=== PATIENT | male | born 1945 | race Asian ===

== ENCOUNTER 2019-09-25 07:41 | Emergency (ER) | payer OTHER, SELFPAY ==
--- NOTE | ~2019-09-25 | XR_ITS ---
EXAMINATION: XR ankle RT 2V DATE: 09/25/2019 08:27 INDICATION: Heel pain with erythema and swelling TECHNIQUE: Anteroposterior and lateral views of the right ankle were obtained. COMPARISON: 08/03/2018 FINDINGS: Bone alignment is normal. No fracture. Joint spaces appear relatively preserved. No right ankle joint effusion. Large Achilles calcaneal spur and moderate-sized plantar calcaneal spur. No cortical erosi ons. IMPRESSION: 1. . Large Achilles calcaneal spur and moderate-sized plantar calcaneal spur. No acute osseous abnorm ality. Reviewed, dictated and finalized at location A. IMPRESSION: 1. . Large Achilles calcaneal spur and moderate-sized plantar calcaneal spur. N o acute osseous abnormality.
[2019-09-25 07:48] VITALS: BP 131/78; PULSE 73; RESP 18; TEMP 36.6; O2SAT 100
--- NOTE | 2019-09-25 07:53 | ED.LOWEXIN ---
HPI - Extremity Injury (Lower) General Chief Complaint: Extremity Injury, Lower Stated Complaint: right lower leg/heel pain Time Seen by Provider: 09/25/19 07:51 History of Present Illness HPI Narrative: Right heal pain at the insertion of the Achilles tendon for >1 week. Worse with pressure and bearing weight. Seen by PCP and started on Naproxen 500 mg without any relief. Had similar pain a few years ago which was fixed with local injection. He does have a h/o gout. Related Data Home Medications Medication Instructions Recorded Confirmed allopurinol 300 mg tablet 300 mg PO DAILY 07/28/19 09/25/19 amlodipine 10 mg tablet 10 mg PO DAILY 07/28/19 09/25/19 aspirin 81 mg tablet,delayed 81 mg PO DAILY 07/28/19 09/25/19 release carvedilol 3.125 mg tablet 3.125 mg PO Q12H 07/28/19 09/25/19 isosorbide mononitrate 30 mg 30 mg PO DAILY 07/28/19 09/25/19 tablet,extended release 24 hr ftptzkdk-ajw-tbrgk acid 300 1 tablet PO DAILY 07/28/19 09/25/19 mcg-lycopene 600 mcg-lutein 300 mcg tablet simvastatin 40 mg tablet 40 mg PO DAILY 07/28/19 09/25/19 sitagliptin 100 mg tablet 100 mg PO DAILY 07/28/19 09/25/19 Allergies Allergy/AdvReac Type Severity Reaction Status Date / Time Penicillins AdvReac Anaphylaxis Verified 09/25/19 07:56 Review of Systems Review of Systems: All systems reviewed & are unremarkable except as noted in HPI and below Constitutional: Constitutional: Denies chills and Denies fever(s) Cardiovascular: Cardiovascular: Denies chest pain Respiratory: Respiratory: Denies dyspnea Musculoskeletal: Musculoskeletal: Denies back pain and Denies arthralgias Integumentary/Breasts: Skin/Breast: Denies skin ulcer Neurologic: Denies numbness and Denies weakness [facility] Past Medical History Medical History Diabetes Family History Family History Father Diabetes mellitus Social History Social History Smoking status: Never smoker Alcohol intake: never Gender identity (if verbalized by the patient): Male Exam Const: General: healthy appearing, no acute distress and alert Orientation/consciousness: patient oriented x3 HENMT: Head: normal to inspection Resp: Effort & Inspection: normal respiratory effort Cardio: Other: 2+ PT and DP on the right Skin: Rashes: no rashes Wounds: no wounds Other: mildly hyperemia over right Achilles insertion Neuro: General: patient oriented x3, moves all extremities, no focal motor deficits and CN's II-XI intact bilaterally Speech: normal speech Extrem: Other: tenderness over posterior healing ankle joint nontender Course Course Emergency Course: Pain resolved after injection Vital Signs Vital signs: Vital Signs Temperature 36.6 C 09/25/19 07:48 Pulse Rate 73 09/25/19 07:48 Respiratory Rate 18 09/25/19 07:48 Blood Pressure 131/78 09/25/19 07:48 Pulse Oximetry 100 09/25/19 07:48 Temperature 36.6 C 09/25/19 07:48 Pulse Rate 70 09/25/19 09:45 Respiratory Rate 16 09/25/19 09:45 Blood Pressure 138/76 09/25/19 09:45 Pulse Oximetry 98 09/25/19 09:45 Procedures Joint Aspiration/Injection Joint Asp./Inject. 1: Side of body: right Joint Aspirated: other (Achilles tendon(not joint)) Ultrasound Guidance: No Skin Prep: Chlorhexidine Local Anesthetic: bupivacaine 0.5% Amount of anesthesia used (mL): 1 Needle Size Used: Other (27G) Medication Injected, if any: Triamcinolone Acetate Amount of medication injected (mL): 1 Patient Tolerated Procedure: well MDM - Extremity Injury (Lower) MDM Narrative Medical decision making narrative: He appears to have Achilles tendonopathy. No obvious joint involvement. Will get X-ray and possibly do steroid injection. X-ray shows large spur. required injectio
[2019-09-25 09:45] VITALS: BP 138/76; PULSE 70; RESP 16; O2SAT 98
== END 2019-09-25 09:46 | disposition home or self-care (01) ==
PROVIDERS: Emergency Provider Emergency Medicine; PCP Family Medicine
DX: M76.61 Achilles tendinitis, right leg (principal); M77.31 Calcaneal spur, right foot; E11.9 Type 2 diabetes mellitus without complications; Z79.82 Long term (current) use of aspirin
CPT/HCPCS: 20551; 73600; 99283

== ENCOUNTER 2019-12-15 11:24 | Outpatient (RCR) | payer OTHER, SELFPAY | END 2019-12-15 23:59 | disposition home or self-care (01) | LOC: ANHAUDIO 11:24 | PROVIDERS: PCP Family Medicine; Visit Provider Family Medicine | DX: Z46.1 Encounter for fitting and adjustment of hearing aid (principal) | CPT/HCPCS: 99199; V5014 ==

== ENCOUNTER 2020-02-01 09:30 | Emergency (ER) | payer OTHER, SELFPAY ==
--- NOTE | ~2020-02-01 | CT_ITS ---
EXAMINATION: CT lumbar spine wo con DATE: 02/01/2020 10:43 INDICATION: Low back pain. TECHNIQUE: Computed tomography (CT) of the lumbar spine was performed without intravenous contrast. A utomated exposure control and iterative reconstruction technique were employed. The dose-length produ ct was 570.16 mGy-cm. COMPARISON: Ultrasound 08/21/2011 FINDINGS: Partially visualized are cysts in the kidneys measuring up to at least 6.2 cm on the left. There is 5 degrees dextrocurvature of lumbar spine. There is 2 mm retrolisthesis of L3 on L4. Vertebr al body heights are normal. There is moderately decreased disc height at L3-L4 and mildly decreased d isc height at L4-L5. Left ilium demonstrates cortical and trabecular thickening, consistent with Page t disease. The following disc levels are specifically discussed: L1-L2: The disc does not extend beyond the endplate margin. There is mild bilateral facet joint osteo arthritis. There is no neural foraminal stenosis. There is no central canal stenosis. L2-L3: The disc does not extend beyond the endplate margin. There is moderate bilateral facet joint o steoarthritis. There is no neural foraminal stenosis. There is no central canal stenosis. L3-L4: The disc is bulging. There is moderate bilateral facet joint osteoarthritis. There is moderate bilateral neural foraminal stenosis. There is mild central canal stenosis. L4-L5: The disc is bulging. There is mild bilateral facet joint osteoarthritis. There is mild bilater al neural foraminal stenosis. There is mild central canal stenosis. L5-S1: The disc is bulging. There is severe bilateral facet joint osteoarthritis. There is mild bilat eral neural foraminal stenosis. There is mild central canal stenosis. IMPRESSION: 1. Moderate lumbar spondylosis. Reviewed, dictated and finalized at location B. [facility] [employer]
[2020-02-01 09:37] VITALS: BP 154/74; PULSE 86; RESP 15; TEMP 36.2; O2SAT 98
[2020-02-01 10:05] LABS: Add Urine Microscopic? YES; Appearance Urine Clear (Clear); Bilirubin Urine Negative (Negative); Blood Urine Negative (Negative); Color Urine Yellow (Yellow); Glucose Urine UA Negative (Negative); Ketones Urine Negative (Negative); Leukocyte Esterase Ur Negative LEU/UL (Negative); Mucus Urine Moderate /lpf; Nitrate Urine Negative (Negative); Protein Urine 1+ mg/dL (Negative); Squamous Epithelial Cell Urine Occasional /hpf (Few); Urobilinogen Urine Negative mg/dL (<2.0); WBC Urine 0-3 /hpf
--- NOTE | 2020-02-01 10:46 | PC.NURSE ---
Pt to CT scan via stretcher.
[2020-02-01 10:47] VITALS: BP 156/78; PULSE 88; RESP 17; O2SAT 99
--- NOTE | 2020-02-01 10:49 | ED.BACK ---
HPI - Back Pain/Injury General Chief Complaint: Back Pain/Injury Stated Complaint: Back Pain Time Seen by Provider: 02/01/20 09:39 Source: patient Mode of arrival: ambulatory Limitations: no limitations History of Present Illness HPI Narrative: Patient said 5-year-old male complaining of low back pain, 8 out of 10, aching, nonradiating, worse with movement started approximately 3 days ago. Patient denies any injury. Patient states that he has occasional low back pain but the past 3 days is worse. Patient denies any bowel or urinary incontinence. Denies fever or chills. Denies urinary symptoms. Related Data Home Medications Medication Instructions Recorded Confirmed allopurinol 300 mg tablet 300 mg PO DAILY 07/28/19 10/08/19 amlodipine 10 mg tablet 10 mg PO DAILY 07/28/19 10/08/19 aspirin 81 mg tablet,delayed 81 mg PO DAILY 07/28/19 10/08/19 release carvedilol 3.125 mg tablet 3.125 mg PO Q12H 07/28/19 10/08/19 xsytbeoy-pso-afihc acid 300 1 tablet PO DAILY 07/28/19 10/08/19 mcg-lycopene 600 mcg-lutein 300 mcg tablet simvastatin 40 mg tablet 40 mg PO DAILY 07/28/19 10/08/19 sitagliptin 100 mg tablet 100 mg PO DAILY 07/28/19 10/08/19 Allergies Allergy/AdvReac Type Severity Reaction Status Date / Time Penicillins AdvReac Anaphylaxis Verified 02/01/20 09:42 Review of Systems Review of Systems: All systems reviewed & are unremarkable except as noted in HPI and below Constitutional: Constitutional: Denies body ache(s), Denies chills, Denies excessive sweating, Denies fatigue, Denies fever(s), Denies headache(s), Denies lethargy, Denies malaise, Denies weakness and Denies weight loss Eyes: Eyes: Denies blurry vision, Denies change in vision and Denies loss of vision ENT: Denies dizziness, Denies ear discharge, Denies headache(s), Denies lip swelling, Denies epistaxis, Denies nasal congestion, Denies neck pain, Denies throat swelling and Denies tongue swelling Cardiovascular: Cardiovascular: Denies chest pain, Denies chest pain at rest, Denies chest pain with activity, Denies diaphoresis, Denies rapid heart rate, Denies edema, Denies irregular heart rhythm, Denies lightheadedness, Denies palpitations, Denies dyspnea and Denies dyspnea on exertion Respiratory: Respiratory: Denies chest congestion, Denies cough, Denies hemoptysis, Denies dyspnea and Denies dyspnea on exertion Gastrointestinal: Gastrointestinal: Denies abdominal pain, Denies melena, Denies hematochezia, Denies diarrhea, Denies nausea, Denies vomiting and Denies hematemesis Musculoskeletal: Musculoskeletal: Denies abnormal gait, Denies deformity, Denies joint swelling, Denies limited range of motion, Denies neck pain and Denies numbness Neurologic: Denies Abnormal speech present, Denies abnormal gait, Denies confusion, Denies dizziness, Denies headache(s), Denies focal weakness, Denies loss of vision, Denies numbness, Denies Other visual disturbances, Denies Sensory deficit (Neuro) and Denies weakness Psychiatric: Psychiatric: Denies confusion, Denies depression, Denies auditory hallucinations, Denies homicidal ideation and Denies suicidal ideation Endocrine: Endocrine: Denies cold intolerance, Denies excessive sweating, Denies fatigue, Denies heat intolerance and Denies palpitations Hematologic/Lymphatic: Hematologic/Lymphatic: Denies easy bleeding and Denies easy bruising Allergic/Immunologic: Allergic/Immunologic: Denies lip swelling, Denies throat swelling and Denies tongue swelling PMFSH Past Medical History Medical History (Updated 02/01/20 @ 11:43 by Reinier Cat MD) Diabetes Family History Family History Father Diabetes mellitus Social History Social History Smoking status: Never smoker Alcohol intake: never Gender identity (if verbalized by the patient): Male Exam Const: General: cooperative, healthy appearin
[2020-02-01] MEDS: KETOROLAC (*BKC) 60 MG/2 ML VIAL 30 MG IM (11:14)
[2020-02-01 12:02] VITALS: BP 148/89; PULSE 79; RESP 15; O2SAT 97
== END 2020-02-01 12:04 | disposition home or self-care (01) ==
PROVIDERS: Emergency Provider Emergency Medicine; PCP Family Medicine
DX: S39.012A Strain of muscle, fascia and tendon of lower back, initial encounter (principal); Z79.82 Long term (current) use of aspirin; E11.9 Type 2 diabetes mellitus without complications; X58.XXXA Exposure to other specified factors, initial encounter
CPT/HCPCS: 72131; 81001; 96372; 99284; J1100; J1885

== ENCOUNTER 2020-05-26 09:26 | Outpatient (CLI) | payer OTHER, SELFPAY | END 2020-05-26 09:27 | disposition home or self-care (01) | LOC: ANHCOVIDVC 09:26 | PROVIDERS: PCP Family Medicine | DX: Z23 Encounter for immunization (principal) | CPT/HCPCS: 0001A; 91300 ==

== ENCOUNTER 2020-06-16 09:28 | Outpatient (CLI) | payer OTHER, SELFPAY | END 2020-06-16 09:29 | disposition home or self-care (01) | LOC: ANHCOVIDVC 09:28 | PROVIDERS: PCP Family Medicine | DX: Z23 Encounter for immunization (principal) | CPT/HCPCS: 0002A; 91300 ==

== ENCOUNTER 2020-08-17 08:20 | Emergency (ER) | payer OTHER, SELFPAY ==
--- NOTE | ~2020-08-17 | XR_ITS ---
EXAMINATION: XR foot RT min 3V DATE: 08/17/2020 09:34 INDICATION: Right heel pain TECHNIQUE: Dorsoplantar, oblique and lateral views of the right foot were obtained. COMPARISON: None. FINDINGS: Bone alignment is normal. No fracture. Polyarticular osteoarthritis, mild to moderate severity at the first metatarsophalangeal joint particularly at the articulation with the first metatarsal sesamoids and mild at several tarsal metatarsal and interphalangeal joints. Achilles calcaneal spur and modera te-sized plantar calcaneal spur. No cortical erosions. Soft tissues are unremarkable. No evident righ t ankle joint effusion. IMPRESSION: 1. Large Achilles and moderate-sized plantar calcaneal spurs. 2. Polyarticular osteoarthritis in the mid and forefoot, mild to moderate at the first metatarsophala ngeal joint. Reviewed, dictated and finalized at location A. IMPRESSION: 1. Large Achilles and moderate-sized plantar calcaneal spurs. 2. Polyarticular osteoarthritis in the mid and forefoot, mild to moderate at th e first metatarsophalangeal joint.
--- NOTE | 2020-08-17 08:27 | ED.LOWEXIN ---
HPI - Extremity Injury (Lower) General Chief Complaint: Extremity Injury, Lower Stated Complaint: right heel pain Time Seen by Provider: 08/17/20 08:27 Source: patient Mode of arrival: ambulatory Limitations: no limitations History of Present Illness HPI Narrative: Patient is a 75-year-old male with history of gout, hypertension who presents for evaluation of right heel pain. Patient with a history of calcific tendinitis of the Achilles tendon, has intermittently had flareups with previous visits to the emergency department for local injections that have completely resolved his pain. Patient denies recent fall, injury or trauma. No redness or swelling. Patient reports pain is exacerbated with movement and bearing weight. No knee pain or hip pain. Denies fever or chills. No other infectious type symptoms. Pain is currently dull, aching in nature, improved with rest. Related Data Home Medications Medication Instructions Recorded Confirmed allopurinol 300 mg tablet 300 mg PO DAILY 07/28/19 04/07/20 amlodipine 10 mg tablet 10 mg PO DAILY 07/28/19 04/07/20 aspirin 81 mg tablet,delayed 81 mg PO DAILY 07/28/19 04/07/20 release carvedilol 3.125 mg tablet 3.125 mg PO Q12H 07/28/19 04/07/20 bslxtram-taw-knqau acid 300 1 tablet PO DAILY 07/28/19 04/07/20 mcg-lycopene 600 mcg-lutein 300 mcg tablet simvastatin 40 mg tablet 40 mg PO DAILY 07/28/19 04/07/20 sitagliptin 100 mg tablet 100 mg PO DAILY 07/28/19 04/07/20 Allergies Allergy/AdvReac Type Severity Reaction Status Date / Time Penicillins AdvReac Anaphylaxis Verified 04/07/20 13:29 Review of Systems Review of Systems: Narrative: CONSTITUTIONAL: Denies fever CARDIOVASCULAR: Denies chest pain RESPIRATORY: Denies cough or dyspnea. GASTROINTESTINAL: Denies abdominal pain SKIN: Denies rash MUSCULOSKELETAL: Denies back pain, reports right heel pain NEUROLOGIC: Denies headache [facility] Past Medical History Medical History (Updated 08/17/20 @ 09:34 by Isabelle Sanders MD) CKD (chronic kidney disease) stage 3, GFR 30-59 ml/min Coronary artery disease Diabetes Dyslipidemia Hypertension Family History Family History Father Diabetes mellitus Social History Social History Smoking status: Never smoker Alcohol intake: never Gender identity (if verbalized by the patient): Male Exam Narrative: Exam Narrative: GENERAL: Awake, alert, conversant HEAD: Normocephalic, atraumatic. EYES: PERRLA and EOMI. ENT: Nares clear, no rhinorrhea or epistaxis. Mucous membranes moist. NECK: Supple. CHEST: No respiratory distress, breathing even and non labored HEART: Regular rate, sinus rhythm ABDOMEN:Non distended, non tender EXTREMITIES: Normal range of motion. No edema. Pain with flexion and extension of the right heel, pain with palpation of the right Achilles tendon at the insertion site to the calcaneus. No deformity, ecchymoses, and erythema or edema. DP pulses 2+. Posterior tibialis pulse 2+. Intact distal sensation. SKIN: Warm, dry, no rash. NEURO:No focal deficits. Alert and oriented x3 Course Vital Signs Vital signs: Vital Signs Temperature 36.6 C 08/17/20 08:45 Pulse Rate 73 08/17/20 08:45 Respiratory Rate 17 08/17/20 08:45 Blood Pressure 142/59 H 08/17/20 08:45 Pulse Oximetry 96 08/17/20 08:45 Temperature 36.6 C 08/17/20 08:45 Pulse Rate 74 08/17/20 10:17 Respiratory Rate 18 08/17/20 10:17 Blood Pressure 140/70 08/17/20 10:17 Pulse Oximetry 98 08/17/20 10:17 Procedures Other Procedure Procedure 1: Other Procedure: Steroid injection Patient was prepped and draped in sterile fashion. The heel area on the right foot/lower extremity was cleansed with chlorhexidine. Local anesthetic and Kenalog was injected to the area surrounding the Achilles tendon. Patient tolerated this well without any ac
[2020-08-17 08:45] VITALS: BP 142/59; PULSE 73; RESP 17; TEMP 36.6; O2SAT 96
--- NOTE | 2020-08-17 09:29 | PC.NURSE ---
Pt taken to Xray
[2020-08-17] MEDS: KETOROLAC 30 MG/ML VIAL (*BKC) IM (10:02)
[2020-08-17 10:17] VITALS: BP 140/70; PULSE 74; RESP 18; O2SAT 98
== END 2020-08-17 10:41 | disposition home or self-care (01) ==
PROVIDERS: Emergency Provider Emergency Medicine; PCP Family Medicine
DX: M76.61 Achilles tendinitis, right leg (principal); I12.9 Hypertensive chronic kidney disease with stage 1 through stage 4 chronic kidney disease, or unspecified chronic kidney disease; E11.22 Type 2 diabetes mellitus with diabetic chronic kidney disease; N18.30 Chronic kidney disease, stage 3 unspecified; I25.10 Atherosclerotic heart disease of native coronary artery without angina pectoris; E78.5 Hyperlipidemia, unspecified
CPT/HCPCS: 73630; 96372; 99283; J1885

== ENCOUNTER 2020-12-21 07:45 | Emergency (ER) | payer OTHER, SELFPAY ==
[2020-12-21] VITALS (14 sets, daily range): BP systolic 132–139; BP diastolic 67–74; PULSE 70–80; RESP 16; TEMP 36.7–36.8; O2SAT 95–100
--- NOTE | ~2020-12-21 | XR_ITS ---
EXAMINATION: XR foot LT min 3V DATE: 12/21/2020 08:20 INDICATION: Lateral left foot pain TECHNIQUE: Dorsoplantar, two oblique and lateral views of the left foot were obtained. COMPARISON: None. FINDINGS: Alignment is normal. Oscillation findings suggesting talocalcaneal coalition including nonvisualizati on of the subtalar joint line with posterior C sign and with talar beak. No fracture. Polyarticular o steoarthritis, mild to moderate severity at the first metatarsophalangeal joint and minimal to mild a t a few of the tarsal metatarsal and interphalangeal joints. Achilles and plantar calcaneal spurs. So ft tissues are unremarkable. 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 2. Polyarticular osteoarthritis in the mid and forefoot, mild to moderate at the first metatarsophala ngeal joint. Reviewed, dictated and finalized at location A. 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 2. Polyarticular osteoarthritis in the mid and forefoot, mild to moderate at th e first metatarsophalangeal joint.
--- NOTE | 2020-12-21 08:03 | ED.LOWEXIN ---
HPI - Extremity Injury (Lower) General Chief Complaint: Extremity Injury, Lower Stated Complaint: foot pain Time Seen by Provider: 12/21/20 07:46 Source: RN notes reviewed History of Present Illness HPI Narrative: Patient presents emergency department from home for left foot pain. Patient states he has had pain at the base of the left fifth toe that began 2 days ago. States mild swelling in the area and tenderness to touch. Patient denies any direct trauma or injury states he does have a history of gout but is not had gout in this region before he denies any pain in the ankle or the remainder of the foot patient states he did not take any pain medication this morning Related Data Home Medications Medication Instructions Recorded Confirmed allopurinol 300 mg tablet 300 mg PO DAILY 07/28/19 10/05/20 aspirin 81 mg tablet,delayed 81 mg PO DAILY 07/28/19 10/05/20 release jvhasszh-ggp-siwnm acid 300 1 tablet PO DAILY 07/28/19 10/05/20 mcg-lycopene 600 mcg-lutein 300 mcg tablet sitagliptin 100 mg tablet 100 mg PO DAILY 07/28/19 10/05/20 Allergies Allergy/AdvReac Type Severity Reaction Status Date / Time codeine AdvReac Intermediate Dizziness Verified 12/21/20 08:01 Penicillins AdvReac Anaphylaxis Verified 12/21/20 08:01 Review of Systems Review of Systems: Gen.: Denies fevers or chills Musculoskeletal: See HPI Neuro: Denies numbness, tingling, weakness Skin: Denies rash Endo: Reports diabetes mellitus PMFSH Past Medical History Medical History CKD (chronic kidney disease) stage 3, GFR 30-59 ml/min Coronary artery disease Diabetes Dyslipidemia Hypertension Family History Family History Father Diabetes mellitus Social History Social History Smoking status: Never smoker Alcohol intake: never Gender identity (if verbalized by the patient): Male Exam Narrative: APPEARANCE: No acute distress, nontoxic, resting in bed Eyes: EOMI HEENT: Normocephalic, atraumatic, RESPIRATORY: No respiratory distress MUSCULOSKELETAl: Mild swelling and erythema at the base of the fifth toe in the region of the MTP serious tender to palpation there is no erythema the remainder the foot and the remainder the foot is nontender to palpation no tenderness of the ankle dorsalis pedis pulse 2+ neurovascular intact no open wounds no fluctuance NEURO: Awake and alert. Following commands, speech normal, no focal deficits SKIN:: Warm, dry. Normal Color no rash or lesions Course Course Emergency Course: Reviewed records patient is already and on allopurinol and Naprosyn Discussed with patient results of workup and diagnosis. Discussed need for follow-up with primary care, proper use of medication, and reasons to return to the emergency department. Patient understands and agrees to current treatment plan Vital Signs Vital signs: Vital Signs Temperature 98.0 F 12/21/20 07:50 Pulse Rate 80 12/21/20 07:50 Respiratory Rate 16 12/21/20 07:50 Pulse Oximetry 99 12/21/20 07:50 Temperature 98.0 F 12/21/20 07:50 Pulse Rate 80 12/21/20 07:50 Respiratory Rate 16 12/21/20 07:50 Blood Pressure 134/67 12/21/20 09:02 Pulse Oximetry 99 12/21/20 09:02 MDM - Extremity Injury (Lower) Lab Data Result diagrams: 12/21/20 08:42 12/21/20 09:40 Labs: Lab Results 12/21/20 12/21/20 Range/Units 08:42 09:40 WBC 8.8 (4.5-10.0) K/mm3 RBC 4.83 (4.6-6.20) M/mm3 Hgb 15.0 (14.0-18.0) g/dL Hct 45.6 (42.0-52.0) % MCV 94.4 (80-100) fl MCH 31.1 (26-34) pg MCHC 32.9 (32-36) g/dl RDW 12.0 (11.5-14.5) % Plt Count 217 (150-375) k/mm3 MPV 10.3 (7.4-10.4) fl Immature Gran % (Auto) 0.2 (0-0.5) % Neut % (Auto) 70.6 (45.5-73.1) % Lymph % (Auto) 19.6 (18.3-44.2) % Ogle % (Auto) 7.
[2020-12-21] MEDS: ACETAMINOPHEN 500 MG TABLET 1000 MG PO (08:07)
[2020-12-21 08:52] LABS: Basophils Percent Auto 0.3 % (0.2-1.2); Eosinophils Absolute Auto 0.2 K/mm3 (0-0.3); Eosinophils Percent Auto 2.2 % (0-4.4); Hematocrit 45.6 % (42.0-52.0); Immature Granulocyte Absolute 0.02 K/mm3 (0.00-0.031); Immature Granulocyte Percent A 0.2 % (0-0.5); Lymphocytes Absolute Auto 1.72 K/mm3 (0.9-3.2); Lymphocytes Percent Auto 19.6 % (18.3-44.2); Mean Corpuscular HGB Conc 32.9 g/dl (32-36); Mean Corpuscular Hemoglobin 31.1 pg (26-34); Mean Corpuscular Volume 94.4 fl (80-100); Mean Platelet Volume 10.3 fl (7.4-10.4); Monocytes Absolute Auto 0.6 K/mm3 (0.1-0.6); Monocytes Percent Auto 7.1 % (2.6-8.5); Neutrophils Absolute Auto 6.2 K/mm3 (1.3-6.7); Neutrophils Percent Auto 70.6 % (45.5-73.1); Platelet Count Result 217 k/mm3 (150-375); Red Blood Count 4.83 M/mm3 (4.6-6.20); White Blood Count 8.8 K/mm3 (4.5-10.0)
[2020-12-21 10:25] LABS: Anion Gap 9 mmol/L (8-16); Blood Urea Nitrogen 21 mg/dL (9-20); Calcium 9.8 mg/dL (8.4-10.2); Carbon Dioxide 30 mmol/L (22-30); Chloride 102 mmol/L (98-107); Estimated CRCL calculation 36 ml/min; Estimated Glomerular Filt Rate 39; Glucose 183 mg/dL (65-110); Potassium 4.6 mmol/L (3.4-5.0); Sodium 141 mmol/L (137-145); Uric Acid 6.4 mg/dL (3.5-8.5)
== END 2020-12-21 11:07 | disposition home or self-care (01) ==
PROVIDERS: Emergency Provider Emergency Medicine; PCP Family Medicine
DX: M10.9 Gout, unspecified (principal); E11.22 Type 2 diabetes mellitus with diabetic chronic kidney disease; I12.9 Hypertensive chronic kidney disease with stage 1 through stage 4 chronic kidney disease, or unspecified chronic kidney disease; N18.30 Chronic kidney disease, stage 3 unspecified; M19.072 Primary osteoarthritis, left ankle and foot; Z79.82 Long term (current) use of aspirin; Z79.84 Long term (current) use of oral hypoglycemic drugs
CPT/HCPCS: 36415; 73630; 80048; 84550; 85025; 99283; A9270

== ENCOUNTER 2021-07-16 08:08 | Emergency (ER) | payer OTHER, SELFPAY ==
--- NOTE | ~2021-07-16 | XR_ITS ---
EXAMINATION: XR foot RT min 3V DATE: 07/16/2021 08:46 INDICATION: Right heel pain TECHNIQUE: Dorsoplantar, two oblique and lateral views of the right foot were obtained. COMPARISON: 08/17/2020 FINDINGS: Alignment is normal. No fracture. Polyarticular osteoarthritis. Mild to moderate at the first metatar sophalangeal joint and mild at multiple tarsal metatarsal and interphalangeal joints.. Large Achilles and moderate sized plantar calcaneal spurs. Soft tissues are unremarkable. IMPRESSION: 1. Prominent Achilles and plantar calcaneal enthesophytes. No acute osseous abnormality. Reviewed, dictated and finalized at location A. IMPRESSION: 1. Prominent Achilles and plantar calcaneal enthesophytes. No acute osseous abn ormality.
[2021-07-16 08:12] VITALS: BP 137/70; PULSE 83; RESP 16; TEMP 36.5; O2SAT 100
--- NOTE | 2021-07-16 08:18 | PC.NURSE ---
pt denies any known trauma or injury to area of complaint. pms intact.
--- NOTE | 2021-07-16 09:19 | ED.LOWEXIN ---
HPI - Extremity Injury (Lower) General Chief Complaint: Extremity Injury, Lower Stated Complaint: R heel pain Time Seen by Provider: 07/16/21 08:27 Source: patient Mode of arrival: ambulatory Limitations: no limitations History of Present Illness HPI Narrative: 76-year-old male presenting to the emergency department for evaluation of right heel pain that has been ongoing for approximately the last week. Patient denies any incident of injury. Patient denies any increased activity. Patient states that he has pain that radiates from the heel up to his posterior calf that is worsened with movement. Patient is a diabetic. Patient has a history of a traumatic brain injury. Patient states he cannot tolerate NSAIDs. Related Data Home Medications Medication Instructions Recorded Confirmed allopurinol 300 mg tablet 300 mg PO DAILY 07/28/19 04/06/21 aspirin 81 mg tablet,delayed 81 mg PO DAILY 07/28/19 04/06/21 release kgxiopye-iyl-nljaw acid 300 1 tablet PO DAILY 07/28/19 04/06/21 mcg-lycopene 600 mcg-lutein 300 mcg tablet sitagliptin 100 mg tablet 100 mg PO DAILY 07/28/19 04/06/21 Allergies Allergy/AdvReac Type Severity Reaction Status Date / Time codeine AdvReac Intermediate Dizziness Verified 07/16/21 08:14 Penicillins AdvReac Anaphylaxis Verified 07/16/21 08:14 Review of Systems Review of Systems: CONSTITUTIONAL: Denies fever, chills, or sweats. EYES: Denies visual changes, redness, or discharge. ENT: Denies rhinorrhea, congestion, sore throat, or otalgia. CARDIOVASCULAR: Denies chest pain, palpitations, or edema. RESPIRATORY: Denies cough or dyspnea. GASTROINTESTINAL: Denies abdominal pain, nausea, vomiting, or diarrhea. GENITOURINARY: Denies dysuria or hematuria. SKIN: Denies rash or itching. MUSCULOSKELETAL: See HPI NEUROLOGIC: Denies headache, numbness, or weakness. [facility] Past Medical History Medical History CKD (chronic kidney disease) stage 3, GFR 30-59 ml/min Coronary artery disease Diabetes Dyslipidemia Hypertension Family History Family History Father Diabetes mellitus Social History Social History Smoking status: Never smoker Alcohol intake: never Gender identity (if verbalized by the patient): Male Exam Narrative: APPEARANCE: Well appearing, no pain, no distress, well-nourished. HEAD: normocephalic, atraumatic. NECK: Supple. No adenopathy, no masses. RESPIRATORY: Airway patent, respirations nonlabored. Clear to auscultation bilaterally, no rales, rhonchi, wheezing. CARDIOVASCULAR: Regular rate and rhythm without murmurs rubs or gallops. ABDOMINAL: Soft, nontender, nondistended, normal bowel sounds MUSCULOSKELETAL: Moves all extremities. No calf tenderness to palpation. Patient does have point tenderness at the insertion point of the Achilles tendon. No lower extremity edema. NEURO: Alert. Cranial nerves II through XII intact. Grossly intact SKIN: Warm, dry. Normal Color. No lower extremity cellulitis. Course Course Emergency Course: Low concern for lower extremity DVT. Patient has no lower extremity edema or erythema. No calf tenderness. Patient does have tenderness of the Achilles tendon particularly at the insertion point. Patient states he is unable to tolerate NSAIDs. Patient is diabetic and and systemic steroids would not be worth the risk of the hypoglycemia. Patient will be provided crutches for limited weightbearing in order to rest the foot. Patient was also encouraged to have close follow-up with his primary care physician. Patient was comfortable with the plan for discharge and close follow-up. Patient was willing to try the [place] as he has not had this medication previously. Patient was warned of the side effects of possible gait instability dizziness and nausea. Vital Signs Vital signs: Vital Sign
== END 2021-07-16 10:00 | disposition home or self-care (01) ==
PROVIDERS: Emergency Provider Emergency Medicine; PCP Family Medicine
DX: M77.51 Other enthesopathy of right foot and ankle (principal); E11.22 Type 2 diabetes mellitus with diabetic chronic kidney disease; I12.9 Hypertensive chronic kidney disease with stage 1 through stage 4 chronic kidney disease, or unspecified chronic kidney disease; N18.30 Chronic kidney disease, stage 3 unspecified; E78.5 Hyperlipidemia, unspecified; Z79.82 Long term (current) use of aspirin; Z79.84 Long term (current) use of oral hypoglycemic drugs
CPT/HCPCS: 73630; 99283

== ENCOUNTER 2022-02-28 11:52 | Outpatient (CLI) | payer OTHER, SELFPAY ==
--- NOTE | ~2022-02-28 | XR_ITS ---
XR pelvis 1-2V DATE: 02/28/2022 12:22 INDICATION: Pain, no known injury. TECHNIQUE: AP pelvis COMPARISON: 02/01/2020 CT lumbar spine FINDINGS: There is degenerative change including prominent spurring on the left at the sacroiliac aldo nts. There is cortical thickening and increased density of the left ilium consistent with Paget's disease. No pelvic fracture or bone destruction is evident. Normal alignment at the pubic symphysis and sacroi liac joints. No fracture or dislocation, avascular necrosis or bone destruction is noted at either hi p. IMPRESSION: Paget's disease of left ilium Degenerative change at the sacroiliac joints including prominent spurring on the left Reviewed, dictated and finalized at location B. GAGE LOAN ORIGINATOR IMPRESSION: Paget's disease of left ilium Degenerative change at the sacroiliac joints including prominent spurring on th e left
--- NOTE | ~2022-02-28 | XR_ITS ---
XR sacrum coccyx min 2V DATE: 02/28/2022 12:22 INDICATION: Low back pain. No known injury. TECHNIQUE: AP, angled AP and lateral views of the sacrum and coccyx COMPARISON: None FINDINGS: There is degenerative change at the sacrum joints with particularly prominent spurring supe riorly on the left. No erosive change or ankylosis. No sacral or coccygeal fracture or bone destructi on is detected. Normal alignment at the pubic symphysis. IMPRESSION: Degenerative changes at the sacroiliac joints, left greater than right Reviewed, dictated and finalized at location B. NESS OFFICE COORDINATOR IMPRESSION: Degenerative changes at the sacroiliac joints, left greater than ri [facility]
--- NOTE | ~2022-02-28 | XR_ITS ---
XR lumbar spine 2-3V DATE: 02/28/2022 12:22 INDICATION: Low back pain, midline, for 2 days. No known injury. TECHNIQUE: AP, lateral, coned lateral lumbosacral views COMPARISON: 02/01/2020 CT lumbar spine FINDINGS: Mild degenerative disc disease and anterior spurring at L1-2 and L2-3. Moderately severe degenerative disc disease and mild retrolisthesis at L3-4. Mild degenerative disc disease at L4-5. Minimal degenerative change at L5-S1. No fracture or bone destruction or spondylolisthesis is noted otherwise. The included lower thoracic and lumbar pedicles are intact. Degenerative changes at the sacroiliac joints. IMPRESSION: Multilevel degenerative disc disease, greatest at L3-4, with mild retrolisthesis at this level Reviewed, dictated and finalized at location B. TY AND HEALTH CONSULTANT IMPRESSION: Multilevel degenerative disc disease, greatest at L3-4, with mild r etrolisthesis at this level
== END 2022-02-28 11:53 | disposition home or self-care (01) ==
PROVIDERS: PCP Family Medicine; Visit Provider Family Medicine
DX: M54.50 Low back pain, unspecified (principal); M53.3 Sacrococcygeal disorders, not elsewhere classified; M88.852 Osteitis deformans of left thigh; M51.36 Other intervertebral disc degeneration, lumbar region
CPT/HCPCS: 72100; 72170; 72220

== ENCOUNTER 2022-06-27 10:48 | Outpatient (CLI) | payer OTHER, SELFPAY ==
--- NOTE | ~2022-06-27 | XR_ITS ---
EXAM: XR_CERV2-3V_CR DATE: 06/27/2022 11:03 HISTORY: CERVICALGIA, CERVICAL SPONDYLOSIS. RT SIDE PAIN, NKI . COMPARISON: 06/18/2016, 06/18/2016. FINDINGS: Craniocervical association and atlantoaxial joint are aligned. No prevertebral soft tissue swelling. Stable grade 1 retrolisthesis at C3-4. Stable grade 1 anterolisthesis at C5-6. 4 mm irma listhesis at C4-5 in the swimmer's view. Degenerative height loss at C3. Multilevel disc space narrow ing. Moderate-severe multilevel facet and uncovertebral joint hypertrophy. IMPRESSION: Dynamic grade 1 anterolisthesis at C4-5, not visualized in the prior examination. Grade 1 listheses at C3-4 and C5-6, unchanged since the prior study. Multilevel mild cervical degenerative d isc disease. Multilevel moderate-severe cervical facet arthropathy. Reviewed, dictated and finalized at location K. IMPRESSION: Dynamic grade 1 anterolisthesis at C4-5, not visualized in the prio r examination. Grade 1 listheses at C3-4 and C5-6, unchanged since the prior st udy. Multilevel mild cervical degenerative disc disease. Multilevel moderate-se estrella cervical facet arthropathy.
== END 2022-06-27 10:49 | disposition home or self-care (01) ==
LOC: ANHIMG 10:51
PROVIDERS: PCP Family Medicine; Visit Provider Nurse Practitioner Adult Health
DX: M47.892 Other spondylosis, cervical region (principal); M50.30 Other cervical disc degeneration, unspecified cervical region
CPT/HCPCS: 72040

== ENCOUNTER 2023-08-07 07:30 | Outpatient (RCR) | payer OTHER, SELFPAY ==
--- NOTE | 2023-06-13 08:13 | PTOPEVAL1 ---
Assessment and note entered by Lei Guajardo Evaluation Information Assessment Status Evaluation Diagnosis left shoulder weakness, neck pain Onset 06/13/23 Subjective Information Pt. reports that he began experiencing neck pain about 1 year ago. he reports that shoulder pain began 3-4 months ago. He describes neck pain along the right side and pain is increased with described rotation. Left shoulder pain is described in the area of the lateral brachial region. Pain is increased in the left shoulder with reaching overhead or behind his back. He states that left shoulder pain will wake him from sleep. He states that he is right hand dominant. He reports that washing his hair and dressing are difficult due to shoulder pain. Left shoulder pain is more problematic than his neck pain at this time. He reports that he had no previous difficult with the left shoulder prior to the past 3-4 months. He reports that his goal is to decrease his left shoulder pain and neck pain. Reported Pain Level Pain Score 5,5: Self Report Assessment PT Clinical Summary Pt. is a 78 year old male who enters the clinic with neck pain and left shoulder pain. He presents with indication of left shoulder rotator cuff syndrome on this date. Pt. presents with impaired postural awareness, impaired left shoulder ROM, impaired left shoulder strength, impaired cervical rotation and lateral flexion ROM and pain. Continued skilled PT is indicated in order to improve these areas to allow for improved comfort with IADL performance. Plan of Care Interventions Electrical Stimulation,Hot Pack/Cold Pack,Manual Therapy,Mechanical Traction,Neuro Re-education, Patient/Caregiver Educati,Therapeutic Activities, Therapeutic Exercise PT Services Indicated Yes Treatment Frequency and 2x/week x 10 visits Duration These treatments will address the objective and functional deficits as defined above. The patient will be advanced safely and appropriately in order for the patient to progress towards his/her prior level of function. Additional exercises will be introduced and as well as a comprehensive home exercise program upon discharge, if needed, ?to ensure carryover of functional gains achieved in the clinic. This treatment plan has been reviewed and agreement upon by the patient.
--- NOTE | 2023-06-13 08:15 | OPREHPOC ---
Outpatient Therapy Plan of Care This is a Multidisciplinary Plan of Care that may contain components documented by all disciplines (PT, OT, and ST.) PT Problem 1 PT Problem #1 Knowledge Deficit PT Goal 1 Goal Pt. will be independent with a HEP addressing postural awareness and strength Target Visit 2 PT Problem 2 PT Problem #2 Pain PT Goal 1 Goal Pt. will report reduction in left shoulder and neck pain to 2/10 at worst with all IADL's Target Visit 10 PT Problem 3 PT Problem #3 Impaired Range of Motion PT Goal 1 Goal Pt. will present with 75 degrees bilateral c-spine rotation to improve visual field with tasks such as driving. Pt. will achieve 160 degrees active left shoulder flexion against gravity to improve ability to perform ADL's overhead Pt. will reach to the T3 level with combined shoulder ER and flexion in order to improve ability to complete tasks like washing his hair. Target Visit 10 PT Problem 4 PT Problem #4 Impaired Functional Mobil PT Goal 1 Goal Pt. will improve his Quick DASH score to less than 10% limitation indicating overall functional improvement. Target Visit 10 PT Problem 5 PT Problem #5 Impaired Strength PT Goal 1 Goal Pt. will present with 4/5 gross proximal right u.e . strength to improve ability to complete overhead tasks. Target Visit 10
--- NOTE | 2023-07-04 08:53 | PCPTNOTE ---
Pt no showed appt due to forgetting appt. He was unable to reschedule today but did make future appts.
--- NOTE | 2023-07-18 08:04 | PCPTNOTE ---
Pt called today 30 min past scheduled appt time, he forgot his appt. SANDRA
--- NOTE | 2023-07-23 07:29 | PCPTNOTE ---
Mr. Jordan arrived to PT this morning however prior to treatment he had to leave. Pt had oral sx yesterday and pain was too great for him this morning to participate in PT.
--- NOTE | 2023-08-01 07:30 | PCPTNOTE ---
Patient cancelled due to family illness.
--- NOTE | 2023-08-07 08:08 | PTOPDC ---
Assessment and note entered by Lei Guajardo Evaluation Information Assessment Status Discharge Diagnosis left shoulder weakness, neck pain Onset 06/13/23 Subjective Information Pt. reports that his pain is much less intense. 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 Neck pain has been minimal. He reports no complication currently with sleeping at night. He states that pain stays consistent now and does not have as many intense moments of pain. He reports that he continues to exercise daily and is ready for discharge. Reported Pain Level Pain Score 0,2: Self Report Assessment PT Clinical Summary Pt. has met the majority of goals established at the initial evaluation. He presents with significant improvements in regards to strength and ROM at both the left shoulder and cervical spine. He is encouraged to continue with his HEP and will be discharged from our care at this time. Plan of Care PT Services Indicated No
== END 2023-08-07 14:20 | disposition home or self-care (01) ==
LOC: ANHPT 07:30
PROVIDERS: PCP Family Medicine; Visit Provider Family Medicine
DX: M54.2 Cervicalgia (principal); M62.81 Muscle weakness (generalized)
CPT/HCPCS: 97014; 97110; 97140; 97161; 97530; 99199; G0283

== ENCOUNTER 2023-08-29 09:03 | Outpatient (CLI) | payer OTHER, SELFPAY ==
--- NOTE | ~2023-08-29 | XR_ITS ---
EXAMINATION: XR sacrum coccyx min 2V DATE: 08/29/2023 09:30 INDICATION: Chronic low back pain. TECHNIQUE: 3 views of the sacrum and coccyx were obtained. COMPARISON: Pelvis radiograph 02/28/2022, CT lumbar spine 02/01/2020 FINDINGS: Bone alignment is normal. No fracture. Left ilium demonstrates cortical and trabecular thic kening, consistent with Paget disease. The hip joint spaces are normal. There is mild osteoarthritis of the sacroiliac joints. There is mild lumbar spondylosis. IMPRESSION: 1. Mild osteoarthritis of the sacroiliac joints. Reviewed, dictated and finalized at location A.
--- NOTE | ~2023-08-29 | XR_ITS ---
EXAMINATION: XR lumbar spine 2-3V DATE: 08/29/2023 09:30 INDICATION: Chronic low back pain. TECHNIQUE: 3 views of lumbar spine were obtained. COMPARISON: Lumbar spine radiographs 02/28/2022, CT 02/01/2020 FINDINGS: There is 2 mm retrolisthesis of L3 on L4. Vertebral body heights are normal. There is moder ately decreased disc height at L3-L4 and mildly decreased disc height at L4-L5. There are endplate os teophytes at all levels. There is multilevel facet joint osteoarthritis, severe in lower lumbar spine . IMPRESSION: 1. Stable moderate lumbar spondylosis. Reviewed, dictated and finalized at location A.
== END 2023-08-29 09:04 | disposition home or self-care (01) ==
PROVIDERS: PCP Family Medicine
DX: M54.50 Low back pain, unspecified (principal); M43.06 Spondylolysis, lumbar region; M47.898 Other spondylosis, sacral and sacrococcygeal region
CPT/HCPCS: 72100; 72220

== ENCOUNTER 2025-01-19 08:24 | Outpatient (CLI) | payer OTHER, SELFPAY ==
--- OUTSIDE RECORDS SUMMARY | 2004-07-10 19:00 | XMS_ITS | Continuity of Care Document ---
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 [address], [place], [place], [id number], [place]. tel:[phone] Family History Family Member Type Diagnosis Age At Onset No Information Payers Payer name Insurance type Covered libertarian ID Authoriza tion(s) No Information Social History Type Description Quantity Date Captured Comments Sex Male Smoking Status No Information Vital Signs Date / Time: Height Weight BMI Pulse Rate Blood Pressure Temperature Respiratory Rate Body Surface Area Head Circumference Head Circ. Percentile Wt./Taz. Percentile BMI percentile Pulse Ox Inhaled Ox 5:08 PM 69.00 in 188.00 lbs 0.00 kg/m eter (2) 0 /min 130/80 mm[Hg] 97.40 F 0 /min 0.00 cm 0 % Chief Complaint And Reason For Visit No Information Reason For Referral Reason For Referral No Information History Of Present Illness Encounter Date Complaint History Of Prese nt Illness No Information Functional Status Date Functional Assessmen t No Information Instructions Date Instruction Additional Infor mation No Information Assessments Type Assessment Date No Information Patient Care Teams Name Effective Dates (start - stop) Status Members No Information
--- OUTSIDE RECORDS SUMMARY | 2015-07-07 09:06 | XMS_ITS | Continuity of Care Document ---
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 [address] [address] [facility] [facility] [address], [place], [place], [id number] , [place]. tel:[phone] Family History Family Member Type Diagnosis Age At Onset No Information Payers Payer name Insurance type Covered republican ID Authoriza tion(s) No Information Social History Type Description Quantity Date Captured Comments Sex Male Smoking Status No Information Chief Complaint And Reason For Visit No [...]
--- NOTE | 2025-01-19 08:43 | ECHO_ITS ---
Patient Info Name: Jeremiah Jordan Age: 80 years : 1945 Gender: Male Ht: 71 in Wt: 165 lbs BSA: 1.94 m2 HR: 56 bpm BP: 140 / 75 mmHg Technical Quality: Fair Exam Date: 01/19/2025 8:58 AM Patient Status: O Admit Date: 01/19/2025 Exam Type: CA echo doppler color flow Complete two-dimensional, color flow and Doppler transthoracic echocardiogram is performed. Periodicals Library Assistant: Daksha Rashid Attending Provider: Pa Jackson DO Summary 1. Complete two-dimensional, color flow and Doppler transthoracic echocardiogram is performed. 2. Left ventricular chamber dimension is normal. 3. Left ventricular systolic function is normal, estimated at 60-65. 4. The left ventricular diastolic function is grade I diastolic dysfunction. 5. E/e' 9 is minimally elevated. 6. There is mild aortic valve sclerosis. 7. There is mild to moderate aortic valve regurgitation. 8. The mitral valve has a mildly calcified annulus. 9. There is mild to moderate mitral valve regurgitation. 10. No pulmonary hypertension, estimated pulmonary arterial systolic pressure is 32 mmHg. Left Ventricle E/e' 9 is minimally elevated. Left ventricular chamber dimension is normal. Left ventricular systolic function is normal, estimated at 60-65. The left ventricular diastolic function is grade I diastolic dysfunction. Right Ventricle Right ventricular chamber dimension is normal. Right ventricular systolic function is normal and with normal TAPSE 2.3 cm. Left Atria Left atrial chamber dimension is normal. Right Atria Right atrial chamber dimension is normal. Aortic Valve The aortic valve is trileaflet. There is mild aortic valve sclerosis. There is no aortic valve stenosis. There is mild to moderate aortic valve regurgitation. Pulmonic Valve There is no pulmonic regurgitation. Mitral Valve The mitral valve has a mildly calcified annulus. There is no mitral valve stenosis. There is mild to moderate mitral valve regurgitation. Tricuspid Valve There is no tricuspid valve regurgitation. No pulmonary hypertension, estimated pulmonary arterial systolic pressure is 32 mmHg. Pericardium/Pleural There is no pericardial effusion. Inferior Vena Cava Normal inferior vena cava with >50% collapse upon inspiration consistent with normal right atrial pressure, 5 mmHg. Aorta The aortic root size at the sinus of Valsalva is normal. Left Ventricular Outflow Tract Name Value Normal LVOT 2D LVOT Diameter 2.0 cm LVOT Doppler LVOT Peak Velocity 126 cm/s LVOT Peak Gradient 6 mmHg LVOT Mean Gradient 3 mmHg LVOT VTI 33 cm LVOT VTI/AV VTI Ratio 0.9 LVOT Stroke Volume 100 ml LVOT CO 5.4 l/min LVOT CI 2.8 l/min/m2 Pulmonic Valve Name Value Normal RVOT Doppler RVOT Peak Velocity 82 cm/s RVOT Peak Gradient 3 mmHg PV Doppler PV Peak Velocity 106 cm/s PV Peak Gradient 5 mmHg Mitral Valve Name Value Normal MV Diastolic Function MV E Peak Velocity 85 cm/s MV A Peak Velocity 98 cm/s MV E/A 0.9 MV Decel Time (PW) 284 ms Tricuspid Valve Name Value Normal TV Regurgitation Doppler TR Peak Velocity 261 cm/s TR Peak Gradient 27 mmHg Estimated PAP/RSVP RA Pressure 5 mmHg <=5 PA Systolic Pressure 32 mmHg <36 RV Systolic Pressure 32 mmHg <36 TV Annular TDI TV Lateral Elaine s' Velocity 12.2 cm/s >=9.5 Aorta Name Value Normal Ascending Aorta Ao Root Diameter (MM) 3.0 cm Ao Root Diam Index (MM) 1.5 cm/m2 Aortic Valve Name Value Normal AV Doppler AV Peak Velocity 167 cm/s AV Peak Gradient 11 mmHg AV Mean Gradient 5 mmHg AV VTI 35 cm AV Area (Cont Eq VTI) 2.8 cm2 >=3.0 AV Area (Cont Eq Jas) 2.3 cm2 AV DI (Jas) 0.75 AV Regurgitation 2D LVOT Area 3.1 cm2 Ventricles Name Value Normal LV Dimensions 2D/MM IVS Diastolic Thickness (2D) 1.0 cm 0.6-1.0 IVS Diastole Thickness (MM) 0.8 cm 0.6-1.0 LVID Diastole (2D) 4.7 cm 4.2-5.8 LVID Diastole (MM) 5.8 cm 4.2-5.8 LVIW Diastolic Thickness (2D) 1.1 cm 0.6-1.0 LVIW Diastolic Thickness (MM) 0.9 cm 0.6-1.0 LVID Systole (2D) 3.3 cm 2.5-4.0 LVID Systole (MM) 4.3 cm 2.5-4.0 LVOT Diameter 2.0 cm LV Mass (2D Cubed) 177.74 g 88.00-224.00 LV Mass Index (2D Cubed) 92 g/m2 49-115 Relative Wall Thickness (2D) 0.48 <=0.42 LV Mass (MM Cubed) 188.23 g 88.00-224.00 LV Mass Index (MM Cubed) 97 g/m2 49-115 Relative Wall Thickness (MM) 0.29 LV Fractional Shortening/Ejection Fraction 2D/MM LV Fractional Shortening (2D) 30 % 25-43 LV Fractional Shortening (MM) 26 % 25-43 LV EF (MM Vipulichmanny) 50 % LV EF (2D Teichholz) 57 % LV Diastolic Volume (4C MOD) 59 ml LV EF (4C MOD) 63 % LV Diastolic Volume (2C MOD) 80 ml LV EF (2C MOD) 62 % LV Diastolic Volume (BP MOD) 69 ml 62-150 LV Diastolic Volume Index (BP MOD) 36 ml/m2 34-74 LV Systolic Volume (BP MOD) 26 ml 21-61 LV Systolic Volume Index (BP MOD) 13 ml/m2 11-31 LV EF (BP MOD) 63 % 52-72 LV Diastolic Length (4C) 8.4 cm LV Systolic Length (4C) 6.8 cm LV Stroke Volume (4C MOD) 37 ml Atria Name Value Normal LA Dimensions LA Dimension (MM) 4.0 cm 3.0-4.0 LA Volume (4C A-L) 44 ml LA Volume (BP A-L) 44 ml RA Dimensions RA Systolic Major Calvert Length (4C) 4.7 cm 2.1-2.7 RA Area (4C) 15.3 cm2 <=18.0 Report Signatures
--- OUTSIDE RECORDS SUMMARY | 2025-01-19 08:43 | XMS_ITS | Clinical Summary ---
Author Organization [facility] Address [id number], [place] [address] Phone Care Team Providers Care Family Mediator Name Role Phone Tang Royal MD Primary Care Provider [phone] Allergies Active Allergy Reactions Criticality Noted Date Comments Calcium-Containing Compounds Lactose Intolerance (Gi) Penicillins Medications SITagliptin (JANUVIA) 100 MG tablet 1 tab qday 2 Active nitroglycerin (NITROSTAT) 0.4 MG SL tablet as needed for chest pain 2 Active lisinopril (PRINIVIL,ZESTRI L) 5 MG tablet 1 tab qday 2 Active aspirin (ST GENEVIEVE) 81 MG EC tablet 1 tab qday 2 Active clopidogrel (PLAVIX) 75 MG tablet 1 tab qday 2 Active ergocalciferol (VITAMIN D2) 13820 units capsule 2 9 Active traMADol (ULTRAM) 50 MG tablet 0 9 Active amLODIPine (NORVASC) 10 MG tablet Take 10 mg by mouth 1 (one) time each day 5 9 Active Blood Glucose Monitoring Suppl (Bring Light VERIO FLEX SYSTEM) w/Device kit USE DIRECTED TO TEST BLOOD SUGARS NEEDED 0 9 Active carvedilol (COREG) 3.125 MG tablet TAKE 1 TABLET BY MOUTH ONCE DAILY WITH FOOD 2 9 Active Bring Light VERIO test strip USE STRIP TO CHECK GLUCOSE ONCE DAILY 2 9 Active isosorbide mononitrate (IMDUR) 30 MG 24 hr tablet TAKE 1 TABLET BY MOUTH ONCE DAILY IN THE MORNING 5 9 Active simvastatin (ZOCOR) 20 MG tablet Take 20 mg by mouth every night 0 Active Lancets (OneTouch Delica Plus [id number]) misc USE TO CHECK GLUCOSE THREE TIMES DAILY DIRECTED 0 Active meloxicam (MOBIC) 7.5 MG tablet 1 Active cyclobenzaprine (FLEXERIL) 5 MG tablet TAKE 1 TO 2 TABLETS BY MOUTH AT BEDTIME NEEDED FOR CRAMPS SPASMS 1 Active pioglitazone (ACTOS) 30 MG tablet Take 30 mg by mouth 1 (one) time each day 1 Active pravastatin (PRAVACHOL) 40 MG tablet Take 40 mg by mouth 1 (one) time each day 1 Active allopurinol (ZYLOPRIM) 300 MG tablet Take 300 mg by mouth 1 (one) time each day 2 Active Active Problems Problem Noted Date Diagnosed Date Coronary arteriosclerosis 05/03/2021 Diabetes mellitus 05/03/2021 History of male erectile disorder 05/03/2021 Other hyperlipidemia 12/19/2014 Overview (06/07/2018): Converted unresolved ICD9, potential mismatch. Hypertensive chronic kidney disease with stage 1 through stage 4 chronic kidney disease, or unspecified chronic kidney disease 12/19/2014 Type 2 diabetes mellitus wit h other diabetic kidney complication 12/23/2013 Chronic kidney disease, stage 3 (moderate) 09/17 Essential (primary) hypertension 09/18/2011 Type 2 diabetes mellitus without complication Gout 09/18/2011 Atherosclerotic heart diseas e of [place] coronary artery without angina pectoris 09/18/2011 Immunizations Immunization Administration Dates Next Due Influenza, Injectable, Quadrivalent 12/23/2018 Pneumococcal Conjugate 13-Valent 11/28/2016 Sars-cov-2, Unspecified 05/31/2020 Family History Medical History Relation Comments Diabetes mellitus Father Heart disease Father Diabetes mellitus Mother Heart disease Mother Kidney disease Neg Hx Kidney stone Neg Hx Relation Status Comments Father Mother Social History Tobacco Use Types Packs/Day Years Used Date Smoking Tobacco: Never Smokeless Tobacco: Never Alcohol Use Standard Drinks/Week Comments No 0 (1 standard drink = 0.6 oz pur e alcohol) Sex and Gender Information Value Date Recorded Sex Assigned at Not on file Legal Sex Male 9:04 AM MST Gender Identity Not on file Sexual Orientation Not on file Last Filed Vital Signs Vital Sign Reading Time Taken Comments Blood Pressure 132/70 11/01/2021 8:54 AM CDT Pulse 78 09/19/2011 12:01 AM CDT Temperature 35.9 C (96.7 F) 11/01/2021 8:54 AM CDT Respiratory Rate 18 11/01/2021 8:54 AM CDT Oxygen Saturation - - Inhaled Oxygen Concentration - - Weight 82.6 kg (182 lb) 11/01/2021 8:54 AM CDT Height 172.7 cm (5' 8) 11/01/2021 8:54 AM CDT Body Mass Index 27.67 11/01/2021 8:54 AM CDT Plan of Treatment Health Maintenance Due Date Last Done Comments Pneumococcal PPSV23/PCV13 65 + Years / Low and Medium Risk (2 of 3 - PCV20 or PCV21) 11/28/2017 11/28/2016 Influenza Vaccine (#1) 2024 Insurance MEDICAID - [place] Care Teams Family Mediator Relationship Specialty Start Date End Date Tang Royal MD [address] [place] [address] PCP - General Internal Medicine 08/13/18
== END 2025-01-19 08:25 | disposition home or self-care (01) ==
LOC: ANHCARD 08:25
PROVIDERS: PCP Family Medicine; Visit Provider Internal Medicine Cardiovascular Disease
DX: R06.09 Other forms of dyspnea (principal); I34.0 Nonrheumatic mitral (valve) insufficiency; I35.1 Nonrheumatic aortic (valve) insufficiency
CPT/HCPCS: 93306

== ENCOUNTER 2025-02-09 08:16 | Outpatient (CLI) | payer OTHER, SELFPAY ==
--- NOTE | ~2025-02-09 | NM_ITS ---
EXAMINATION: NM perez stress w perfusion DATE: 02/09/2025 11:15 INDICATION: Other forms of dyspnea TECHNIQUE: Rest images were obtained following intravenous administration of 10.5 mCi Tc99m tetrofosmin (Myoview). The patient was infused intravenously with Lexiscan (Regadenoson). Then, 33.7 mCi Tc99m tetrofosmin (Myoview) was administered intravenously, and stress images were obtained, initially in the supine position with repeat post stress images obtained in the prone position. Data was reconstructed into short axis and horizontal and vertical long axis SPECT images. Gated SPECT images were also obtained. COMPARISON: None. FINDINGS: There is a small moderate fixed perfusion defect consistent with infarct at the basilar inferolateral and basilar inferior segments. The partially reversible perfusion defect consistent with combination of infarct and more apical sided ischemia in the mid inferolateral and mid inferior segments. There is normal left ventricular chamber size, wall motion and ejection fraction. Left ventricular ejection fraction measures >70%. IMPRESSION: 1. Moderate-sized moderate severity infarct in the mid inferior and inferolateral and basilar inferior and inferolateral segments with superimposed mild ischemia along the apical side of the mid inferior and mid inferolateral segments. 2. Left ventricular ejection fraction measuring >70%. Reviewed, dictated and finalized at location [facility]. [facility] IMPRESSION: 1. Moderate-sized moderate severity infarct in the mid inferior and inferolater al and basilar inferior and inferolateral segments with superimposed mild ische suzie along the apical side of the mid inferior and mid inferolateral segments. 2. Left ventricular ejection fraction measuring >70%.
--- NOTE | 2025-02-09 08:30 | EST_ITS ---
Patient Info Name: Jeremiah Jordan Age: 80 years : 1945 Gender: Male Ht: 70 in Wt: 175 lbs BSA: 1.99 m2 HR: 56 bpm BP: 146 / 76 mmHg Exam Date: 02/09/2025 8:30 AM Patient Status: O Admit Date: 02/09/2025 Exam Type: CA stress perez w NM A regadenoson stress test was performed. Staff Referring Physician: Pa Jackson DO Attending Provider: Pa Jackson DO Exercise Technologist: Tesha Rivers Exercise Physician: Pa Jackson DO Summary 1. 1. Negative lexiscan stress test for ischemic ST changes by ECG criteria. 2. 2. Baseline hypertension. 3. 3. Nuclear scan to follow and will be reported separately. Please correlate with it. 4. 4. Patient informed of the above results. Protocol: Lexiscan Stress ECG Details Stage: REST Duration (min): 1 min : 38 sec HR (bpm): 56 SBP (mmHg): 146 DBP (mmHg): 76 Stage: REST Duration (min): 13 min : 32 sec HR (bpm): 56 SBP (mmHg): 146 DBP (mmHg): 76 Stage: STAGE 1 Duration (min): 1 min : 0 sec HR (bpm): 63 SBP (mmHg): 163 DBP (mmHg): 77 Stage: RECOVERY Duration (min): 1 min : 0 sec HR (bpm): 71 SBP (mmHg): 163 DBP (mmHg): 77 Stage: RECOVERY Duration (min): 2 min : 0 sec HR (bpm): 63 SBP (mmHg): 163 DBP (mmHg): 77 Stage: RECOVERY Duration (min): 3 min : 0 sec HR (bpm): 61 SBP (mmHg): 139 DBP (mmHg): 74 Stage: RECOVERY Duration (min): 3 min : 22 sec HR (bpm): 62 SBP (mmHg): 139 DBP (mmHg): 74 Rest HR: 56 bpm Peak HR: 76 bpm Rest Sys BP: 146 mmHg Peak Sys BP: 163 mmHg Max Pred HR: 140 bpm % Max Pred HR: 54 % Target HR: 119 bpm Max RPP: 12,388 bpm*mmHg Termination Reason: Completed protocol Cardiac Symptoms: Shortness of breath Total Time: 1 min : 0 sec Rest Nelson BP: 76 mmHg Peak Nelson BP: 77 mmHg Total Dose: 0.4 mg Resting ECG Sinus bradycardia. Stress ECG No ST changes. Arrhythmias None. Report Signatures
== END 2025-02-09 08:17 | disposition home or self-care (01) ==
PROVIDERS: PCP Family Medicine; Visit Provider Internal Medicine Cardiovascular Disease
DX: R06.09 Other forms of dyspnea (principal)
CPT/HCPCS: 78452; 93017; A9502; J2785